=== PATIENT | female | born 1950 | race Caucasian/White ===

== ENCOUNTER 2016-10-13 11:47 | Emergency (ER) | payer MEDICAID ==
[~2016-10-13] VITALS: Wt 78.0 kg
--- NOTE | 2016-10-13 13:03 | RADRPT ---
PROCEDURE: XR Foot. CLINICAL INDICATION: Injury TECHNIQUE: Three views of the left foot are available for review. COMPARISON: None available FINDINGS: There is no acute osseous or articular abnormality. No evidence for fracture. The articular surface s are smooth without evidence of marginal erosions. Enthesopathic changes seen at the calcaneus. The soft tissues are intact without evidence of calcifications. IMPRESSION: 1. No acute osseous abnormality. RPTAT: PP .Maximo Malcolm MD, MD Date Time Electronically viewed and signed by .Maximo Malcolm MD, MD on 10/13/2016 13:03 .d/
[2016-10-13] MEDS ORDERED: IBUP-1542 PO (13:36)
--- NOTE | 2016-10-13 13:44 | ERD ---
ER Documentation Chief Complaint Date/Time DATE: 10/13/16 TIME: 13:37 Chief Complaint left toe discoloration and swelling after jammed on door. no deformity HPI Patient is a 66-year-old female with past medical history of hyperlipidemia, hypothyroidism who presents to the emergency department with left foot pain status post jamming foot in house door. Patient states that she was closing the door when injury occurred. Patient states the injury occurred 8 days ago. Patient reports swelling to the top of her left foot. She is able to ambulate without difficulty however states that it is painful. She reports taking Tylenol which does minimally alleviate the pain. Patient also reports ecchymosis and swelling to her second toe. Patient denies any previous injuries to this extremity. Denies any fever, chills, nausea, vomiting, chest pain, shortness of breath, loss of consciousness. ROS All systems reviewed and are negative except as per history of present illness. Medications Home Meds Active Scripts Ibuprofen* (Ibuprofen*) 600 Mg Tablet, 600 MG PO Q6, #30 TAB Prov:MAYTE AUGUSTE PA-C 10/13/16 PMhx/Soc History of Surgery: No Anesthesia Reaction: No Hx Neurological Disorder: No Hx Respiratory Disorders: No Hx Cardiac Disorders: Yes (hyperlipids) Hx Psychiatric Problems: No Hx Miscellaneous Medical Probl: Yes (hypothyroid) Hx Alcohol Use: No Hx Substance Use: No Hx Tobacco Use: No Smoking Status: Never smoker FmHx Family History: No diabetes Physical Exam Vitals Vital Signs Date Time Temp Pulse Resp B/P Pulse Ox O2 Delivery O2 Flow Rate FiO2 10/13/16 11:53 97.5 95 20 121/62 97 Physical Exam GENERAL: Well-developed, well-nourished female. Appears in no acute distress. HEAD: Normocephalic, atraumatic. EYES: Pupils are equally reactive bilaterally. EOMs grossly intact. No conjunctival erythema. ENT: Moist mucous membranes. No uvula deviation. No kissing tonsils. NECK: Supple. No lymphadenopathy or thyromegaly. No meningismus. LUNG: Clear to auscultation bilaterally. No rhonchi, wheezing, rales or coarse breath sounds. HEART: Regular rate and rhythm. No murmurs, rubs or gallops. EXTREMITIES: Equal pulses bilaterally. No peripheral clubbing, cyanosis or edema. No unilateral leg swelling. NEUROLOGIC: Alert and oriented. Moving all four extremities without any difficulty. Normal speech. Steady gait. SKIN: Warm and dry. No rashes or lesions. LEFT FOOT/KNEE: No obvious deformity or erythema. Varicosities noted throughout lower extremity. Ecchymosis and swelling noted to anterior aspect of mid foot. Proximal through distal tibia- fibula, ankle nontender to palpation. Midfoot is tender to palpation. Second digit appears swollen. Digit 2 tender to palpation, decreased ROM secondary to swelling. Digits 1, 3, 4, 5 nontender to palpation. Normal range of motion of digits 1, 3, 4,5. Skin intact. Normal range of motion of the ankle, knee. Sensation intact to light touch. Neurovascularly intact. + DP and DT pulses. Procedures/MDM ED COURSE: The patient was stable throughout ED course. I kept the patient and/or family informed of laboratory and diagnostic imaging results throughout the ED course. DIAGNOSTIC IMAGING: Read by radiologist. DIAGNOSTIC IMAGING REPORT Patient: NIGHAT BORREGO : 1950 Age: 66 Sex: F MR #: [id number] DOS: 10/13/16 1224 Ordering MD: MAYTE AUGUSTE PA-C Location: [facility] Room/Bed: PROCEDURE: XR Foot. CLINICAL INDICATION: Injury TECHNIQUE: Three views of the left foot are available for review. COMPARISON: None available FINDINGS: There is no acute osseous or articular abnormality. No evidence for fracture. The articular surfaces are smooth without evidence of marginal erosions. Enthesopathic changes seen at the calcaneus. The soft tissues are intact without evidence of calcifications. IMPRESSION: 1. No acute osseous abnormality. RPTAT: PP .Maximo Malcolm MD, MD Date Time Electronically viewed and signed by .Maximo Malcolm MD, MD on 10/13/2016 13:03 .d/ CC: MAYTE AUGUSTE PA-C SPLINT APPLICATION: The patient was verbally consented at bedside prior to splint application. Patient was explained the risks, benefits and alternatives to this procedure. The patient was neurovascularly intact prior to and status post application of the splint. The patient tolerated the procedure well with no complications. Splint type: left foot walking shoe Extremity: left foot Indication: left foot sprain MEDICAL DECISION MAKING: This is a 66-year-old female who presents with left foot pain status post injury 8 days ago. Vital signs were reviewed. Patient was afebrile. Xrays showed No acute osseous abnormality. She was given a walking shoe for comfort. Given these findings, the patients presentation is most consistent with foot sprain. I have a much lower clinical concern for ankle dislocation, ankle fracture, tarsal bone fracture, metatarsal fracture, phalangeal fracture, stress fracture, lisfranc injury, gout, septic joint, DVT, compartment syndrome , plantar fasciitis, diabetic neuropathy or pes planus. At this time, unable to rule out any tendon and ligament injuries. PRESCRIPTIONS: Ibuprofen DISCHARGE: At this time, patient is stable for discharge and outpatient management. RICE therapy and ROM exercises were advised to avoid stiffness. I have instructed the patient to follow-up with his/her primary care physician in 1-2 days. I have discussed with the patient the possibility of needing to see an help desk support specialist for further workup and imaging if the pain persists. I have instructed the patient to promptly return to the ER for any new or worsening symptoms including increased pain, swelling, redness, warmth or fever. The patient and/or family expressed understanding of and agreement with this plan. All questions were answered. Home care instructions were provided. Departure Diagnosis: Primary Impression: Foot sprain Encounter type: initial encounter Laterality: left Qualified Code: S93.602A - Foot sprain, left, initial encounter Condition: Stable Patient Instructions: Sprain Foot [facility] Usted se mike hecho un examen mdico de control que le indica que no est en johnny condicin que requiera tratamiento urgente en el Departamento de Emergencia. Un estudio ms profundo y el tratamiento de whittington condicin pueden esperar sin ningn riesgo hasta que usted sea atendida/o en el consultorio de whittington mdico o johnny cl shawn. Es responsabilidad suya arreglar johnny irwin para el seguimiento del brian. MANEJO DE CONDICIONES NO URGENTES EN EL FUTURO 1) Si usted tiene un mdico de atencin primaria: Usted debera llamar a whittington mdico de atencin primaria antes de venir al departamento de emergencia. Despus de las horas de consultorio, whittington doctor o whittington asociado/a est disponible por telfono. El mdico o enfermero de grabiel en el servicio telefnico puede asesorarle por luana medio para atender el problema, o brian contrario se puede programar johnny irwin. 2) Si usted no tiene un mdico de atencin primaria: Llame al mdico o clnica de referencia que aparece abajo ivory las horas de consultorio para hacer johnny irwin para que le vean. CLINICAS: [facility] [phone] [address] [facility] [phone] [address] [facility] [phone] [address] [facility]. [facility] [phone] [address] [facility] [facility] [phone] [address] [facility]. [phone] [address] [facility]. [facility] () Usted se mike hecho un examen mdico de control que le indica que no est en johnny condicin que requiera tratamiento urgente en el Departamento de Emergencia. Un estudio ms profundo y el tratamiento de whittington condicin pueden esperar sin ningn riesgo hasta que usted sea atendida/o en el consultorio de whittington mdico o johnny cl shawn. Es responsabilidad suya arreglar johnny irwin para el seguimiento del brian. MANEJO DE CONDICIONES NO URGENTES EN EL FUTURO 1) Si usted tiene un mdico de atencin primaria: Usted debera llamar a whittington mdico de atencin primaria antes de venir al departamento de emergencia. Despus de las horas de consultorio, whittington doctor o whittington asociado/a est disponible por telfono. El mdico o enfermero de grabiel en el servicio telefnico puede asesorarle por luana medio para atender el problema, o brian contrario se puede programar johnny irwin. 2) Si usted no tiene un mdico de atencin primaria: Llame al mdico o condado institucions de referencia que aparece abajo ivory las horas de consultorio para hacer johnny irwin para que le vean. SI USTED NO PUEDE PAGAR PARA BENJI UN MEDICO puede ir a: [facility] [address] [place] [address] [facility] [address] [place] [address] [facility] [address] [place] [address] [address] [facility] [address] [place], [place] [id number] [facility] Hours: Mon-Fri 9:00 AM - 5:00 PM Additional Instructions: Call your primary care doctor TOMORROW for an appointment during the next 1-2 days.See the doctor sooner or return here if your condition worsens before your appointment time. Unable to rule out any ligament or tendon injuries at this time. Patient may need to see an help desk support specialist and/or obtain MRI imaging for further management of her symptoms. MAYTE AUGUSTE PA-C Oct 13, 2016 13:44 MAYTE AUGUSTE PA-C Oct 13, 2016 13:44
== END 2016-10-13 14:05 | disposition home or self-care (01) ==
LOC: FTE 11:47
DX: S93.602A Unspecified sprain of left foot, initial encounter (principal); E03.9 Hypothyroidism, unspecified; W23.1XXA Caught, crushed, jammed, or pinched between stationary objects, initial encounter; Y92.009 Unspecified place in unspecified non-institutional (private) residence as the place of occurrence of the external cause
CPT/HCPCS: L3260-LT